=== PATIENT | female | born 1955 | race Caucasian/White ===

== ENCOUNTER 2023-11-24 06:39 | Day surgery (SDC) | payer OTHER, MEDICARE ==
[2023-11-17 14:41] VITALS: BMI 21.2
[2023-11-24] MEDS: CIPROFLOXACIN 0.3% EYE DROPS 5 ML BOTTLE ONE (07:15)
[2023-11-24] MEDS: TROPICAMIDE 1% OPHTH SOLN 15 ML BOTTLE ONE (07:15)
[2023-11-24] MEDS: CYCLOPENTOLATE 2% OPHTH SOLN 2 ML BOTTLE ONE (07:15)
[2023-11-24] MEDS: PHENYLEPHRINE 2.5% OPTHALMIC DROP 2ML BOTTLE ONE (07:15)
[2023-11-24] MEDS ORDERED: BSS (NA/CA/MG/K) BALANCED SALT SOLUTION OPHTH SOLN 15 ML BOTTLE ONE (07:18)
[2023-11-24] MEDS ORDERED: LIDOCAINE 1% P/F 10 MG/ML VIAL ONE (07:18)
[2023-11-24] MEDS ORDERED: EPINEPHrine/PF 1 MG/1 ML (1:1,000) AMPULE ONE (07:18)
[2023-11-24] MEDS ORDERED: TETRACAINE 0.5% OPHTH SOLN 2 ML BOTTLE ONE (07:18)
[2023-11-24] MEDS ORDERED: CARBACHOL 0.01% INTRA-OCULAR 1.5 ML VIAL ONE (07:19)
[2023-11-24] MEDS ORDERED: NEO/POLYMYX B SULF/DEXAMETH OPHTHALMIC 5ML BOTTLE ONE (07:19)
[2023-11-24] MEDS ORDERED: MIDAZOLAM HCL 2 MG/2 ML SINGLE DOSE VIAL ONE (07:51)
[2023-11-24 08:56] VITALS: TEMP 97.8
[2023-11-24 09:14] VITALS: BP 110/54; PULSE 60; RESP 19
== END 2023-11-24 09:20 | disposition home or self-care (01) ==
LOC: FASU 06:39
PROVIDERS: ATTEND Ophthalmology
PROC: 08RJ3JZ Replacement of Right Lens with Synthetic Substitute, Percutaneous Approach (ICD-10-PCS; principal; 2023-11-24 08:21)
DX: H26.8 Other specified cataract (principal)
CPT/HCPCS: 66984; V2632

== ENCOUNTER 2023-12-22 07:19 | Day surgery (SDC) | payer OTHER, MEDICARE ==
[2023-12-17 10:10] VITALS: BMI 21.2
[2023-12-22] MEDS: CYCLOPENTOLATE 2% OPHTH SOLN 2 ML BOTTLE OS ONE ×3 (07:20→07:30)
[2023-12-22] MEDS: CIPROFLOXACIN 0.3% EYE DROPS 5 ML BOTTLE OS ONE ×3 (07:20→07:30)
[2023-12-22] MEDS: PHENYLEPHRINE 2.5% OPHTH SOLN 15 ML BOTTLE OS ONE ×3 (07:20→07:30)
[2023-12-22] MEDS: TROPICAMIDE 1% OPHTH SOLN 15 ML BOTTLE OS ONE ×3 (07:20→07:30)
[2023-12-22 07:47] VITALS: RESP 16
[2023-12-22] MEDS ORDERED: TETRACAINE 0.5% OPHTH SOLN 2 ML BOTTLE ONE (07:58)
[2023-12-22] MEDS ORDERED: NEO/POLYMYX B SULF/DEXAMETH OPHTHALMIC 5ML BOTTLE ONE (07:58)
[2023-12-22] MEDS ORDERED: CARBACHOL 0.01% INTRA-OCULAR 1.5 ML VIAL ONE (07:58)
[2023-12-22] MEDS ORDERED: EPINEPHrine/PF 1 MG/1 ML (1:1,000) AMPULE ONE (07:58)
[2023-12-22] MEDS ORDERED: LIDOCAINE 1% P/F 10 MG/ML VIAL ONE (07:58)
[2023-12-22] MEDS ORDERED: BSS (NA/CA/MG/K) BALANCED SALT SOLUTION OPHTH SOLN 15 ML BOTTLE ONE (07:58)
[2023-12-22] MEDS ORDERED: MIDAZOLAM HCL 2 MG/2 ML SINGLE DOSE VIAL ONE (08:16)
[2023-12-22 09:21] VITALS: TEMP 97.1
[2023-12-22 09:41] VITALS: BP 116/71; PULSE 56
== END 2023-12-22 09:44 | disposition home or self-care (01) ==
LOC: FASU 07:19
PROVIDERS: ATTEND Ophthalmology
PROC: 08RK3JZ Replacement of Left Lens with Synthetic Substitute, Percutaneous Approach (ICD-10-PCS; principal; 2023-12-22 08:44)
DX: H26.8 Other specified cataract (principal)
CPT/HCPCS: 66984; V2632